=== PATIENT | female | born 1945 | race African-American/Black ===

== ENCOUNTER 2024-08-15 16:00 | Inpatient (IN) | payer MEDICARE, BC ==
[2024-08-15 16:37] LABS: #Basophils Less than 0.03 10x3/uL (0.0-0.2); %Basophils 0.2 % (0.0-1.0); %Eosinophils 0.5 % (0.0-10.0); %Lymphocytes 25.2 % (21.0-51.0); %Monocytes 5.7 % (0.0-10.0); %Neutrophils 68.2 % (42.0-75.0); Hematocrit 32.9 % (36.0-47.0); Hemoglobin 10.8 g/dL (12.0-16.0); Mean Corpuscular HGB CONC 32.8 g/dL (32.0-36.0); Mean Corpuscular Hemoglobin 28.3 pg (27.0-31.0); Mean Corpuscular Volume 86.1 fL (78.0-98.0); Mean Platelet Volume 10.2 fL (7.4-10.4); Platelet Count 292 10x3/uL (130-400); RBC Distribution Width 15.1 % (11.5-14.5); Red Blood Cell (RBC) Count 3.82 mill/uL (4.20-5.40)
[2024-08-15 16:55] LABS: ALT (SGPT) 14 U/L (8-55); AST (SGOT) 32 U/L (5-34); Albumin 3.3 g/dL (3.4-4.8); Alkaline Phosphatase 88 U/L (40-110); Anion Gap 12 mmol/L (10-20); BUN (Urea Nitrogen) 8 mg/dL (9.8-20.1); Bilirubin, Total 0.6 mg/dL (0.2-1.2); Calc. Creatinine Clearance 0 mL/min (70-130); Calcium 8.1 mg/dL (7.8-10.44); Carbon Dioxide 24 mmol/L (23-31); Chloride 110 mmol/L (98-107); Estimated GFR 67; Globulin 2.6 g/dL (2.4-3.5); Glucose 111 mg/dL (83-110); Potassium 3.2 mmol/L (3.5-5.1); Protein, Total 5.9 g/dL (5.8-8.1); Sodium 143 mmol/L (136-145)
[2024-08-15 16:57] LABS: INR-International Normal Ratio 1.1; Prothrombin Time 13.8 sec (12.0-14.7)
[2024-08-15 16:58] LABS: PTT 29.4 sec (22.9-36.1)
[2024-08-15] MEDS ORDERED: PROPOFOL 20 ML ONE (17:32)
[2024-08-15] MEDS ORDERED: SUCCINYLCHOLINE/SOD CL,ISO/PF 200 MG/10 ML SYRINGE FS ONE (17:32)
[2024-08-15] MEDS ORDERED: Lidocaine 1% PF 5 ML VIAL ONE (17:32)
[2024-08-15] MEDS ORDERED: Ondansetron PF 4 MG/2 ML Vial ONE (18:02)
[2024-08-15] MEDS ORDERED: Dexamethasone 20 MG/5 ML VIAL ONE (18:04)
[2024-08-15] MEDS ORDERED: PHENYLEPHRINE-NS 100 MCG/ML 10 ML SYRINGE ONE (18:04)
[2024-08-15] MEDS ORDERED: EPINEPHrine 1 MG/10 ML Abboject SYRINGE ONE (18:15)
[2024-08-15] MEDS ORDERED: Rocuronium Bromide 10 MG/ML (10ML VIAL) ONE (18:17)
[2024-08-15] MEDS ORDERED: Albumin 5% 500 ML ONE (18:30)
[2024-08-15] MEDS ORDERED: SUGAMMADEX SODIUM 200 MG/2 ML VIAL ONE (19:50)
[2024-08-15] MEDS ORDERED: Ondansetron HCl/PF 4 MG/2 ML Vial IVP PRN (20:18)
[2024-08-15] MEDS ORDERED: Promethazine HCl 25 MG/ML VIAL IM PRN (20:18)
[2024-08-15] MEDS ORDERED: Ondansetron PF 4 MG/2 ML Vial IVP PRN (20:21)
[2024-08-15] MEDS ORDERED: hydrALAZINE 20 MG/ML VIAL ONE (20:33)
[2024-08-15 20:54] LABS: Hematocrit 36.5 % (36.0-47.0); Hemoglobin 11.7 g/dL (12.0-16.0)
[2024-08-15 21:31] VITALS: BMI 24.2
[2024-08-15] MEDS: Calcium Carbonate 500 MG ChewTAB PO PRN (21:37)
[2024-08-15] MEDS: Famotidine/PF 20 mg/2ml Vial SLOW IVP SCH (21:49)
[2024-08-15] MEDS: hydrALAZINE 20 MG/ML VIAL SLOW IVP SCH (21:49)
[2024-08-15] MEDS: Morphine 2 MG/ML VIAL SLOW IVP SCH (21:53)
[2024-08-15] MEDS: Potassium Chloride 20 MEQ in Premix 1 BAG IVPB SCH (22:01)
[2024-08-15] MEDS: Nitroglycerin 2% Ointment 1 INCH/1 GM Packet TOP SCH (22:01)
[2024-08-15] MEDS: Lactated Ringer's 1,000 ML IV SCH (22:01)
[2024-08-15] MEDS: Aluminum & Magnesium Hydroxide 60 ML, Lidocaine 2% Viscous Solution 30 ML, diphenhydrAM... SSW SCH (22:01)
[2024-08-15 22:29] LABS: Troponin I 0.022 ng/mL (< 0.028)
[2024-08-15] MEDS ORDERED: Morphine 2 MG/ML VIAL SLOW IVP PRN (23:59)
[2024-08-16 01:28] LABS: Troponin I 0.095 ng/mL (< 0.028)
[2024-08-16 05:14] LABS: #Basophils Less than 0.03 10x3/uL (0.0-0.2); #Eosinophils Less than 0.03 10x3/uL (0.0-0.7); %Basophils 0.1 % (0.0-1.0); %Lymphocytes 10.6 % (21.0-51.0); %Monocytes 2.8 % (0.0-10.0); %Neutrophils 86.1 % (42.0-75.0); Hematocrit 32.5 % (36.0-47.0); Hemoglobin 10.9 g/dL (12.0-16.0); Mean Corpuscular HGB CONC 33.5 g/dL (32.0-36.0); Mean Corpuscular Hemoglobin 28.4 pg (27.0-31.0); Mean Corpuscular Volume 84.6 fL (78.0-98.0); Mean Platelet Volume 10.1 fL (7.4-10.4); Platelet Count 236 10x3/uL (130-400); RBC Distribution Width 14.8 % (11.5-14.5); Red Blood Cell (RBC) Count 3.84 mill/uL (4.20-5.40)
[2024-08-16 05:26] LABS: ALT (SGPT) 16 U/L (8-55); AST (SGOT) 30 U/L (5-34); Albumin 3.6 g/dL (3.4-4.8); Alkaline Phosphatase 83 U/L (40-110); Anion Gap 12 mmol/L (10-20); BUN (Urea Nitrogen) 8 mg/dL (9.8-20.1); Bilirubin, Total 0.9 mg/dL (0.2-1.2); Calc. Creatinine Clearance 55 mL/min (70-130); Calcium 8.2 mg/dL (7.8-10.44); Carbon Dioxide 22 mmol/L (23-31); Chloride 111 mmol/L (98-107); Estimated GFR 70; Glucose 117 mg/dL (83-110); Iron 33 ug/dL (50-170); Iron Binding Capacity, Total 188 mcg/dL (265-497); Potassium 3.4 mmol/L (3.5-5.1); Protein, Total 5.6 g/dL (5.8-8.1); Sodium 142 mmol/L (136-145)
[2024-08-16 05:28] LABS: Iron 35 ug/dL (50-170); Iron Binding Capacity, Total 185 mcg/dL (265-497)
[2024-08-16 05:43] LABS: Troponin I 0.495 ng/mL (< 0.028)
[2024-08-16 05:57] LABS: Magnesium 1.5 mg/dL (1.6-2.6)
[2024-08-16] MEDS ORDERED: Electrolyte Replacement Protocol FS PRN (06:30)
[2024-08-16] MEDS: Magnesium 2 GM/50 ML(in water) 2 GM in Premix 1 BAG IVPB SCH (06:47)
[2024-08-16] MEDS: Potassium Chloride 20 MEQ in Premix 1 BAG IVPB SCH (06:48)
[2024-08-16] MEDS: Potassium Chloride 20 MEQ TAB PO SCH (06:54)
[2024-08-16 08:23] LABS: Troponin I 0.941 ng/mL (< 0.028)
[2024-08-16] MEDS: Acetaminophen 325 MG TAB PO PRN (10:32)
[2024-08-16] MEDS: Pantoprazole 40 MG VIAL IVP SCH (10:33)
[2024-08-16] MEDS: Losartan 25 MG TAB PO SCH (10:33)
[2024-08-16] MEDS: Carvedilol 6.25 MG TAB PO SCH (10:34)
[2024-08-16] MEDS: Amlodipine 10 MG TAB PO SCH (10:34)
[2024-08-16] MEDS: Ranolazine ER 500 MG TAB PO SCH (10:34)
[2024-08-16] MEDS: Ezetimibe 10 MG TAB PO SCH (10:34)
[2024-08-16 12:14] LABS: Hematocrit 30.4 % (36.0-47.0); Hemoglobin 10.2 g/dL (12.0-16.0)
[2024-08-16 12:28] LABS: Anion Gap 11 mmol/L (10-20); BUN (Urea Nitrogen) 7 mg/dL (9.8-20.1); Calc. Creatinine Clearance 50 mL/min (70-130); Calcium 8.2 mg/dL (7.8-10.44); Carbon Dioxide 21 mmol/L (23-31); Chloride 113 mmol/L (98-107); Estimated GFR 59; Glucose 125 mg/dL (83-110); Magnesium 2.2 mg/dL (1.6-2.6); Potassium 3.7 mmol/L (3.5-5.1); Sodium 141 mmol/L (136-145)
[2024-08-16 12:39] LABS: Troponin I 1.353 ng/mL (< 0.028)
[2024-08-16] MEDS: Aspirin 81 mg Enteric Coated Tablet PO SCH (15:08)
[2024-08-16 15:35] VITALS: BMI 24.7
[2024-08-16] MEDS: Loratadine 10 MG TAB PO SCH (16:43)
[2024-08-16] MEDS: ALPRAZolam 0.25 MG TAB PO PRN (18:58)
[2024-08-16] MEDS: Ipratropium/Albuterol 3 ML NEB NEB PRN (19:11)
[2024-08-16] MEDS: Sodium Chloride 0.65% Nasal 44 ML BOT EA NARE PRN (22:32)
[2024-08-17 04:28] LABS: #Basophils 0.03 10x3/uL (0.0-0.2); %Basophils 0.3 % (0.0-1.0); %Eosinophils 0.7 % (0.0-10.0); %Lymphocytes 25.7 % (21.0-51.0); %Monocytes 5.7 % (0.0-10.0); %Neutrophils 67.3 % (42.0-75.0); Hemoglobin 10.3 g/dL (12.0-16.0); Mean Corpuscular HGB CONC 33.2 g/dL (32.0-36.0); Mean Corpuscular Hemoglobin 28.6 pg (27.0-31.0); Mean Corpuscular Volume 86.1 fL (78.0-98.0); Mean Platelet Volume 10.5 fL (7.4-10.4); Platelet Count 239 10x3/uL (130-400); RBC Distribution Width 15.2 % (11.5-14.5)
[2024-08-17 04:43] LABS: Anion Gap 10 mmol/L (10-20); BUN (Urea Nitrogen) 7 mg/dL (9.8-20.1); Calc. Creatinine Clearance 58 mL/min (70-130); Calcium 8.6 mg/dL (7.8-10.44); Carbon Dioxide 26 mmol/L (23-31); Cardiac Risk 2.6 (Less than 4.5); Chloride 109 mmol/L (98-107); Cholesterol 105 mg/dl (< 200 Desired); Estimated GFR 72; Glucose 95 mg/dL (83-110); HDL Cholesterol 40 mg/dL (>60 Neg Risk); LDL Cholesterol, Calculated 49 mg/dL; Magnesium 1.8 mg/dL (1.6-2.6); Potassium 3.4 mmol/L (3.5-5.1); Sodium 142 mmol/L (136-145); Triglycerides 81 mg/dL (Less than 150)
[2024-08-17] MEDS: Aspirin 81 mg Enteric Coated Tablet PO SCH (08:10)
[2024-08-17] MEDS: Potassium Chloride 20 MEQ TAB PO SCH (08:11)
[2024-08-17] MEDS: Magnesium 2 GM/50 ML(in water) 2 GM in Premix 1 BAG IVPB SCH (08:12)
[2024-08-17 08:13] VITALS: BP 139/71
[2024-08-17 10:26] VITALS: TEMP 98
[2024-08-17 16:26] LABS: Potassium 3.6 mmol/L (3.5-5.1)
== END 2024-08-17 17:00 | disposition home or self-care (01) | DRG 377 ==
LOC: ERS 16:00 → IMCU/EMU 17:22 → SUATTDRO 17:22 → SDC/OP 17:22 → IMCU/EMU 20:36
PROVIDERS: ADMIT Internal Medicine; ATTEND Hospitalist
PROC: 0W3P8ZZ Control Bleeding in Gastrointestinal Tract, Via Natural or Artificial Opening Endoscopic (ICD-10-PCS; principal; 2024-08-15)
DX: K92.2 Gastrointestinal hemorrhage, unspecified (principal); I21.A1 Myocardial infarction type 2; R57.8 Other shock; D62 Acute posthemorrhagic anemia; I50.32 Chronic diastolic (congestive) heart failure; K63.3 Ulcer of intestine; K91.840 Postprocedural hemorrhage of a digestive system organ or structure following a digestive system procedure; Y83.8 Other surgical procedures as the cause of abnormal reaction of the patient, or of later complication, without mention of misadventure at the time of the procedure; I25.10 Atherosclerotic heart disease of native coronary artery without angina pectoris; Z95.5 Presence of coronary angioplasty implant and graft; Z95.1 Presence of aortocoronary bypass graft; D50.9 Iron deficiency anemia, unspecified; I11.0 Hypertensive heart disease with heart failure; I73.9 Peripheral vascular disease, unspecified; E78.5 Hyperlipidemia, unspecified; Z79.82 Long term (current) use of aspirin; Z79.02 Long term (current) use of antithrombotics/antiplatelets; Z79.899 Other long term (current) drug therapy
CPT/HCPCS: 36415; 36430; 71045; 71250; 80048; 80053; 80061; 82728; 83540; 83550; 83735; 83880; 84484; 85025; 85610; 85730; 86850; 86900; 86901; 93005; 93010; 93306; 94640; 99285; C1889; J0171; J0360; J1100; J2272; J2405; J2470; J2704; J3475; J3480; J3490; J7120; J7620; P9016; P9045; Q0163

== ENCOUNTER 2025-05-22 09:31 | Outpatient (CLI) | payer MEDICARE, BC | END 2025-05-22 09:32 | disposition home or self-care (01) | LOC: SCSMRI 09:31 | PROVIDERS: ATTEND Family Medicine | DX: M79.604 Pain in right leg (principal); S73.191A Other sprain of right hip, initial encounter; S76.311A Strain of muscle, fascia and tendon of the posterior muscle group at thigh level, right thigh, initial encounter; M48.061 Spinal stenosis, lumbar region without neurogenic claudication; M48.07 Spinal stenosis, lumbosacral region | CPT/HCPCS: 72148 ==

== ENCOUNTER 2025-06-02 16:00 | Emergency (ER) | payer MEDICARE, BC ==
[2025-06-02 17:47] LABS: #Basophils Less than 0.03 10x3/uL (0.0-0.2); #Eosinophils 0.05 10x3/uL (0.0-0.7); #Monocytes 0.27 10x3/uL (0.11-0.59); #Neutrophils 6.92 10x3/uL (1.40-6.50); %Basophils 0.2 % (0.0-1.0); %Eosinophils 0.6 % (0.0-10.0); %Lymphocytes 16.1 % (21.0-51.0); %Monocytes 3.1 % (0.0-10.0); %Neutrophils 79.7 % (42.0-75.0); Hematocrit 37.7 % (36.0-47.0); Hemoglobin 12.0 g/dL (12.0-16.0); Mean Corpuscular Hemoglobin 27.2 pg (27.0-31.0); Mean Corpuscular Volume 85.5 fL (78.0-98.0); Platelet Count 367 10x3/uL (130-400); Red Blood Cell (RBC) Count 4.41 mill/uL (4.20-5.40); White Blood Cell (WBC) Count 8.69 10x3/uL (4.8-10.8)
[2025-06-02 18:06] LABS: ALT (SGPT) 12 U/L (Less than 34); AST (SGOT) 42 U/L (11-34); Albumin 4.0 g/dL (3.1-4.5); Alkaline Phosphatase 140 U/L (40-110); Anion Gap 12 mmol/L (10-20); BUN (Urea Nitrogen) 16 mg/dL (9.8-20.1); Bilirubin, Total 0.4 mg/dL (0.3-1.2); Calc. Creatinine Clearance 0 mL/min (70-130); Calcium 10.2 mg/dL (7.8-10.44); Carbon Dioxide 26 mmol/L (23-31); Chloride 105 mmol/L (98-107); Globulin 3.1 g/dL (2.4-3.5); Glucose 103 mg/dL (83-110); Potassium 4.4 mmol/L (3.5-5.1); Sodium 139 mmol/L (136-145)
[2025-06-02] MEDS ORDERED: Aspirin Chewable 81 MG TAB ONE (18:16)
[2025-06-02] MEDS ORDERED: Nitroglycerin 2% Ointment 1 INCH/1 GM Packet ONE (21:59)
== END 2025-06-02 22:31 | disposition short-term general hospital (02) ==
LOC: ERS 16:00
DX: R06.02 Shortness of breath (principal); R94.31 Abnormal electrocardiogram [ECG] [EKG]; I10 Essential (primary) hypertension; F17.210 Nicotine dependence, cigarettes, uncomplicated
CPT/HCPCS: 71045; 80053; 83880; 84484; 85025; 93005; 94760